=== PATIENT | male | born 1955 | race Caucasian/White ===

== ENCOUNTER 2017-10-29 15:58 | Emergency (ER) | payer OTHER ==
[~2017-10-29] VITALS: Ht 180.3 cm; Wt 90.7 kg
[2017-10-29 16:22] VITALS: BP_SYST 127
[2017-10-29 18:02] VITALS: BP_SYST 124
[2017-10-29] MEDS: KETOROLAC TROMETHAMINE 60 MG/2 ML VIAL IM ONE (18:07)
== END 2017-10-29 18:05 | disposition home or self-care (01) ==
LOC: SED 15:58
DX: S93.401A Sprain of unspecified ligament of right ankle, initial encounter (principal); X58.XXXA Exposure to other specified factors, initial encounter; Y93.89 Activity, other specified; Y92.89 Other specified places as the place of occurrence of the external cause; Y99.8 Other external cause status
CPT/HCPCS: 29515; 73610; 73630; 96372; 99284; J1885